=== PATIENT | male | born 2000 | race Hispanic/Latino ===

== ENCOUNTER 2023-03-24 19:13 | Emergency (ER) | payer OTHER ==
[~2023-03-24] VITALS: Ht 165.1 cm; Wt 88.5 kg
[2023-03-24] MEDS ORDERED: MORPHINE 4 MG SYG ONE (21:20)
[2023-03-24 21:30] VITALS: BP 111/61
[2023-03-24] MEDS ORDERED: ACET-2079 PO (21:53)
[2023-03-24] MEDS ORDERED: IBUP-2077 PO (21:53)
== END 2023-03-24 22:20 | disposition home or self-care (01) ==
LOC: EDH 19:13
DX: S40.011A Contusion of right shoulder, initial encounter (principal); S20.211A Contusion of right front wall of thorax, initial encounter; S00.83XA Contusion of other part of head, initial encounter; F17.200 Nicotine dependence, unspecified, uncomplicated; W11.XXXA Fall on and from ladder, initial encounter; Y93.89 Activity, other specified; Y92.89 Other specified places as the place of occurrence of the external cause; Y99.8 Other external cause status
CPT/HCPCS: 99285; 70450; 96374; 29105; 71045; 73030; 72125; J2270